=== PATIENT | female | born 1935 | race Caucasian/White ===

== ENCOUNTER → 2018-04-26 12:48 | Outpatient (CLI) | payer MEDICARE, OTHER, SELFPAY ==
--- NOTE | 2018-04-26 12:51 | US_ITS ---
US kidney retroperitoneal comp HISTORY: Follow-up renal cysts ITS.REASON: renal cysts ORDERING PHYSICIAN: Art Arriaza MD PATIENT AGE: 82 years Comparison: None FINDINGS: RIGHT KIDNEY:Unremarkable. Normal size and echogenicity. No hydronephrosis The right kidney measures 8.5 x 3 x 3.4 cm and has an unremarkable appearance. LEFT KIDNEY:Unremarkable. No hydronephrosis. Normal size and echogenicity. 12.4 x 4.6 x 5.6 cm. There is a 4.9 cm cyst along the upper pole of the left kidney not significantly changed. There is an additional 3.3 cm cyst in the mid polar region with some minimal nodularity posteriorly. The cyst have not slightly changed in size. IMPRESSION: Stable left renal cysts. There are 2 left renal cyst measuring 4.9 and 3.3 cm with some minimal nodularity along the posterior aspect of left renal cyst which did appear to be present on an older study of 08/13/2012
== END ==
PROVIDERS: PCP Urology; Visit Provider Urology
DX: N28.1 Cyst of kidney, acquired (principal)
CPT/HCPCS: 76770

== ENCOUNTER → 2019-06-17 10:11 | Outpatient (POV) | payer MEDICARE, OTHER, SELFPAY | PROVIDERS: Visit Provider Dermatology | DX: Z00.00 Encounter for general adult medical examination without abnormal findings (principal) ==

== ENCOUNTER → 2021-08-30 11:22 | Outpatient (POV) | payer MEDICARE, OTHER, SELFPAY | PROVIDERS: Visit Provider Dermatology | DX: Z00.00 Encounter for general adult medical examination without abnormal findings (principal) ==

== ENCOUNTER → 2022-01-17 11:14 | Outpatient (POV) | payer MEDICARE, OTHER, SELFPAY | PROVIDERS: Visit Provider Dermatology | DX: Z00.00 Encounter for general adult medical examination without abnormal findings (principal) ==